=== PATIENT | female | born 1955 | race African-American/Black ===

== ENCOUNTER 2022-08-17 07:27 | Observation (INO) | payer MEDICARE ==
[2022-08-15 12:14] LABS: BASOPHILS % 0.1 % (0.0-1.0); EOSINOPHILS # (AUTO) 0.1 (0.0-0.4); EOSINOPHILS % 1.2 % (0.0-6.0); HEMATOCRIT 36.6 % (34.2-44.1); HEMOGLOBIN 12.1 g/dL (12.0-16.0); LYMPHOCYTES # (AUTO) 1.3 (1.0-3.2); LYMPHOCYTES % 19.7 % (18.0-39.1); MEAN CORPUSCULAR HEMOGLOBIN 31.1 pg (28-32); MEAN CORPUSCULAR HGB CONC 33.1 g/dL (31-35); MEAN CORPUSCULAR VOLUME 94.1 fL (81-99); MONOCYTES # (AUTO) 0.5 (0.2-0.8); MONOCYTES % 7.5 % (4.4-11.3); NEUTROPHILS # (AUTO) 4.9 (2.1-6.9); NEUTROPHILS % 71.2 % (38.7-80.0); PLATELET COUNT 195 x10e3/uL (140-360); RED BLOOD COUNT 3.89 x10e6/uL (3.6-5.1); RED CELL DISTRIBUTION WIDTH 13.3 % (11.7-14.4)
[2022-08-15 12:27] LABS: INR 0.88; PROTHROMBIN TIME 12.4 seconds (11.9-14.5)
[2022-08-15 12:28] LABS: PARTIAL THROMBOPLASTIN TIME 28.8 seconds (23.8-35.5)
[2022-08-15 12:41] LABS: ANION GAP 12.5 mmol/L (8-16); CALCIUM 9.7 mg/dL (8.4-10.2); CREATININE, SERUM 0.75 mg/dL (0.57-1.11); POTASSIUM 4.5 mmol/L (3.5-5.1)
[~2022-08-17] VITALS: Ht 162.6 cm; Wt 80.3 kg
[~2022-08-17 07:27] MED LIST: ACETAMINOPHEN 1000 MG/100 ML 100 ML IV ONE; CALCIUM600 MG PO; CEFAZOLIN SODIUM 2 GM ONE; CENTRUM SILVER1 EAC4; CLARITIN5 MG; FLONASE ALLERG9.9 ML INH; IRON; LACTATED RINGER'S 1,000 ML ONE; LEVOTHYROXINE75 MCG PO; LIDOCAINE 1% W/EPINEPHRINE 20 ML VIAL ONE; LIDOCAINE HCL (LTA) 4 ML SOLN ONE; LOSARTAN POTASS25 MG PO; OMEPRAZOLE40 MG PO; POTASSIUM GLUC500 GM; SPIRONOLACTONE1 EACH PO; SUGAMMADEX SODIUM 200 MG/2 ML VIAL IV ONE; THROMBIN FOR SOLN 5,000 UNIT VIAL ONE; Vancomycin IV 1 GM VIAL ONE
[2022-08-17] MEDS ORDERED: MORPHINE SULFATE 5 MG/ML VIAL IM PRN (10:30)
[2022-08-17] MEDS ORDERED: ZOLPIDEM TARTRATE 5 MG TAB PO PRN (10:30)
[2022-08-17] MEDS ORDERED: OXYCODONE/ACETAMINOPHEN 5-325 1 EACH TABLET PO PRN (10:30)
[2022-08-17] MEDS ORDERED: PROMETHAZINE HCL (IM) 25 MG/ML VIAL IM PRN (10:30)
[2022-08-17] MEDS ORDERED: ACETAMINOPHEN 325 MG TAB PO PRN (10:30)
[2022-08-17] MEDS ORDERED: CEPACOL SORE THROAT LOZENGES PO PRN (10:30)
[2022-08-17] MEDS ORDERED: CARISOPRODOL 350 MG TAB PO PRN (10:30)
[2022-08-17] MEDS ORDERED: HYDROMORPHONE 2MG/ML 2 MG/ML ML IV PRN (10:30)
[2022-08-17] MEDS ORDERED: MAGNESIUM/ALUMINUM/SIMETHICONE 30 ML UDC PO PRN (10:30)
[2022-08-17] MEDS ORDERED: ONDANSETRON HCL INJ 2MG/ML 2ML 2 MG/ML VIAL IV PRN (10:30)
[2022-08-17] MEDS ORDERED: HYDROCODON-ACE1 EA12 PO (10:31)
[2022-08-17] MEDS ORDERED: FENTANYL CITRATE/PF 100MCG/2 ML INJ ONE ×2 (10:41→13:08)
[2022-08-17] MEDS: HYDRALAZINE HCL 20 MG/ML VIAL ONE ×2 (11:16→11:22)
[2022-08-17 11:32] VITALS: BP 158/85; PULSE 90; RESP 17; TEMP 97.5; O2SAT 100
[2022-08-17] MEDS ORDERED: SEVOFLURANE INHAL SOLN 250 ML PEN BTL ONE (12:34)
[2022-08-17] MEDS ORDERED: ONDANSETRON HCL INJ 2MG/ML 2ML 2 MG/ML VIAL ONE (12:34)
[2022-08-17] MEDS ORDERED: KETOROLAC TROMETHAMINE 30 MG/ML VIAL ONE (12:34)
[2022-08-17] MEDS ORDERED: LIDOCAINE HCL 2% LOCAL INJ 5 ML SDV VIAL INJ ONE (12:34)
[2022-08-17] MEDS ORDERED: DEXAMETHASONE SOD PHOS INJ 4 MG/ML SDV ONE (12:34)
[2022-08-17] MEDS ORDERED: POVIDONE IODINE 0.05% 0.05 % ML PO ONE (12:34)
[2022-08-17] MEDS ORDERED: ROCURONIUM BROMIDE 10 MG/ML 5ML VIAL IV ONE (12:34)
[2022-08-17] MEDS ORDERED: PROPOFOL IV EMULSION 10 MG/ML 20 ML VIAL ONE (12:34)
[2022-08-17 12:40] VITALS: BP 158/85; PULSE 90; RESP 17; TEMP 97.5; O2SAT 100
[2022-08-17 13:00] VITALS: BP 158/85; PULSE 90; RESP 17; TEMP 97.5; O2SAT 100
[2022-08-17] MEDS: LACTATED RINGER'S 1,000 ML IV SCH ×2 (13:21→20:46)
[2022-08-17] MEDS: OMEPRAZOLE 20 MG CAP PO SCH (15:56)
[2022-08-17 16:00] VITALS: BP 135/78; PULSE 81; RESP 16; TEMP 98.1; O2SAT 100
[2022-08-17] MEDS ORDERED: SODIUM CHLORIDE 0.9% 250ML 250 ML ONE (16:13)
[2022-08-17] MEDS ORDERED: PANTOPRAZOLE SOD 40 MG TABEC PO SCH (17:00)
[2022-08-17 19:30] VITALS: BP 150/89; PULSE 86; RESP 18; TEMP 98.5; O2SAT 100
[2022-08-17 20:00] VITALS: BP 150/89; PULSE 86; RESP 18; TEMP 98.5; O2SAT 100
[2022-08-18 04:00] VITALS: BP 140/77; PULSE 68; RESP 20; TEMP 97.9; O2SAT 100
[2022-08-18] MEDS: LACTATED RINGER'S 1,000 ML IV SCH (05:13)
[2022-08-18] MEDS ORDERED: LEVOTHYROXINE SODIUM 75 MCG TAB PO SCH (06:00)
[2022-08-18 09:00] VITALS: BP 138/74; PULSE 95; RESP 18; TEMP 98.4; O2SAT 100
[2022-08-18] MEDS ORDERED: LOSARTAN POTASSIUM 25 MG TAB PO SCH (09:00)
[2022-08-18] MEDS ORDERED: CALCIUM CARBONATE PO SCH (09:00)
[2022-08-18] MEDS ORDERED: FLUTICASONE PROPIONATE NASAL SPRAY NS SCH (09:00)
[2022-08-18] MEDS: OMEPRAZOLE 20 MG CAP PO SCH (09:31)
[2022-08-18] MEDS ORDERED: ONDANSETRON HCL 4 MG ORAL DISINTEGRATING TAB PO PRN (12:30)
[2022-08-18 12:58] VITALS: BP 156/78; PULSE 88; RESP 18; TEMP 97.9; O2SAT 95
== END 2022-08-18 13:00 | disposition home or self-care (01) ==
LOC: OR 07:27 → PACU V 10:23 → MED/SURG 12:28
PROVIDERS: ADMIT Neurological Surgery; ATTEND Neurological Surgery
DX: M50.121 Cervical disc disorder at C4-C5 level with radiculopathy (principal); M47.12 Other spondylosis with myelopathy, cervical region; Z11.52 Encounter for screening for COVID-19; Z01.810 Encounter for preprocedural cardiovascular examination; Z01.812 Encounter for preprocedural laboratory examination; Z01.818 Encounter for other preprocedural examination; Z79.899 Other long term (current) drug therapy
CPT/HCPCS: 0223U; 36415; 71046; 72040; 77003; 80048; 85025; 85610; 85730; 86850; 86900; 88304; 88311; 93005; C1713; G0378; J0690; J1100; J1885; J2001; J2405; J7050